=== PATIENT | male | born 1955 ===

== ENCOUNTER 2018-12-28 11:23 | Outpatient (CLI) | payer OTHER ==
--- NOTE | 2018-12-28 11:55 | RAD ---
THORACIC SPINE 2 VIEWS: HISTORY: Disability examination. FINDINGS: Postop changes are noted involving the cervical spine. Extensive multilevel thoracic spine disk-oste ophytosis. No evidence for acute fracture or malalignment. IMPRESSION: Extensive thoracic spine spondylosis. Extensive postop changes of the cervical spine. POS: OFF
== END 2018-12-28 11:24 | disposition home or self-care (01) ==
LOC: BICRAD 11:23
PROVIDERS: ATTEND Internal Medicine
DX: Z02.71 Encounter for disability determination (principal); M47.814 Spondylosis without myelopathy or radiculopathy, thoracic region; Z98.890 Other specified postprocedural states
CPT/HCPCS: 72070